=== PATIENT | male | born 1960 | race Caucasian/White ===

== ENCOUNTER 2023-04-02 11:10 | Day surgery (SDC) | payer BC ==
[~2023-04-02] VITALS: Ht 167.6 cm; Wt 86.3 kg
[~2023-04-02 11:10] MED LIST: ASPI325 PO; CALC1.25T; Ciloxan5 ML BOTHEYES; IBUP600; TOCO400; Vitamin C100 M1
[2023-04-02] MEDS ORDERED: Chantix1 MG (12:09)
[2023-04-02] MEDS ORDERED: FOLI1 (12:09)
[2023-04-02] MEDS ORDERED: B-12 COMPL1000 MCG/2 (12:10)
[2023-04-02 14:32] VITALS: BP 98/67
--- NOTE | 2023-04-02 14:39 | NUR ---
04/02/23 1439 Kristen Guzman LATE ENTRY 1425 IV REMOVED INTACT AND WNL
== END 2023-04-02 14:31 | disposition home or self-care (01) ==
LOC: ORSCSDS 11:10
PROVIDERS: Internal Medicine Gastroenterology
PROC: 0DBK8ZX Excision of Ascending Colon, Via Natural or Artificial Opening Endoscopic, Diagnostic (ICD-10-PCS; principal; 2023-04-02 12:30)
PROC: 0DBH8ZX Excision of Cecum, Via Natural or Artificial Opening Endoscopic, Diagnostic (ICD-10-PCS; principal; 2023-04-02 12:30)
PROC: 0DBL8ZX Excision of Transverse Colon, Via Natural or Artificial Opening Endoscopic, Diagnostic (ICD-10-PCS; principal; 2023-04-02 12:30)
DX: Z12.11 Encounter for screening for malignant neoplasm of colon (principal); Z86.010 Personal history of colon polyps; D12.3 Benign neoplasm of transverse colon; D12.2 Benign neoplasm of ascending colon; K63.5 Polyp of colon; K57.30 Diverticulosis of large intestine without perforation or abscess without bleeding; K64.8 Other hemorrhoids; J44.9 Chronic obstructive pulmonary disease, unspecified; F17.210 Nicotine dependence, cigarettes, uncomplicated
CPT/HCPCS: 88305; J2704; J7120

== ENCOUNTER 2024-08-11 11:39 | Day surgery (SDC) | payer BC ==
[~2024-08-11] VITALS: Ht 170.2 cm; Wt 83.8 kg
[~2024-08-11 11:39] MED LIST changes: +B-12 COMPL1000 MCG/2; +Chantix1 MG; +FOLI1; +Lactated Ringer's 1,000 ML IV ONE
[2024-08-11] MEDS ORDERED: NAPROXEN500 MG PO (12:09)
[2024-08-11] MEDS ORDERED: GABA100 PO (12:09)
[2024-08-11] MEDS ORDERED: BUSPIRONE HCL7.5 M6 (12:10)
[2024-08-11] MEDS ORDERED: ESZOPICLONE3 MG PO (12:10)
[2024-08-11] MEDS ORDERED: TAMSULOSIN HCL0.4 M1 PO (12:10)
--- NOTE | 2024-08-11 12:12 | NUR ---
08/11/24 1212 Katina Haskins NO QUESTINOS OR CONCERNS AT THIS TIME.
[2024-08-11] MEDS ORDERED: Lactated Ringer's 1,000 ML IV ONE (12:16)
[2024-08-11] MEDS ORDERED: Midazolam HCl 1MG / ML 2ML Vial ONE (13:11)
[2024-08-11 14:33] VITALS: BP 125/78
--- NOTE | 2024-08-11 14:35 | NUR ---
08/11/24 Anna5 Esthela Garcia PT DENIED PAIN, NO NAUSEA. PT'S GIRLFRIEND AT SIDE OF RECLINER WHILE THIS RN WENT OVER D/C INSTRUCTIONS. ALL QUESTIONS ANSWERED. CONCERNS ADDRESSED. PT TOLERATING FLUIDS WELL. PT WAITING TO GO GET FOOD AT [facility]. PT COLLECTED ALL PERSONAL BELONGINGS. PT AMBULATED WITH A STEADY GAIT TO HIS PRIVATE VEHICLE.
== END 2024-08-11 14:30 | disposition home or self-care (01) ==
LOC: ORSCSDS 11:39
PROVIDERS: Orthopaedic Surgery
PROC: 01N54ZZ Release Median Nerve, Percutaneous Endoscopic Approach (ICD-10-PCS; principal; 2024-08-11 13:30)
DX: G56.03 Carpal tunnel syndrome, bilateral upper limbs (principal); J44.9 Chronic obstructive pulmonary disease, unspecified; K21.9 Gastro-esophageal reflux disease without esophagitis; F32.A Depression, unspecified; F17.210 Nicotine dependence, cigarettes, uncomplicated; Z79.899 Other long term (current) drug therapy
CPT/HCPCS: J2250; J7120

== ENCOUNTER 2024-09-12 09:31 | Day surgery (SDC) | payer BC ==
[~2024-09-12] VITALS: Ht 170.2 cm; Wt 84.3 kg
[~2024-09-12 09:31] MED LIST changes: +BUSPIRONE HCL7.5 M6; +ESZOPICLONE3 MG PO; +GABA100 PO; +NAPROXEN500 MG PO; +TAMSULOSIN HCL0.4 M1 PO
--- NOTE | 2024-09-12 10:39 | NUR ---
09/12/24 1039 Dyan Oh 1036: TIMEOUT FOR PRE-OP INJECTION 1037: DR MUNIZ COMPLETED INJECTION TO L WRIST OF 10 CC MIX OF 9 CC LIDOCAINE 1% WITH EPINEPHRINE 1:100,000 WITH 1 CC SODIUM BICARBONATE
[2024-09-12] MEDS ORDERED: Lactated Ringer's 1,000 ML IV ONE (10:40)
[2024-09-12 10:41] VITALS: BP 117/71
== END 2024-09-12 11:30 | disposition home or self-care (01) ==
LOC: ORSCSDS 09:31
PROVIDERS: Orthopaedic Surgery
PROC: 01N54ZZ Release Median Nerve, Percutaneous Endoscopic Approach (ICD-10-PCS; principal; 2024-09-12 11:00)
DX: G56.02 Carpal tunnel syndrome, left upper limb (principal); J44.9 Chronic obstructive pulmonary disease, unspecified; M79.7 Fibromyalgia; F17.210 Nicotine dependence, cigarettes, uncomplicated; Z79.899 Other long term (current) drug therapy
CPT/HCPCS: J7120